=== PATIENT | female | born 1980 | race Two or more races ===

== ENCOUNTER 2019-04-08 16:59 | Inpatient (IN) | payer OTHER ==
[~2019-04-08] VITALS: Ht 149.9 cm; Wt 68.0 kg
[2019-04-17] MEDS ORDERED: PRENATE ELITE1 EAC2 PO (13:40)
== END 2019-05-02 16:51 | DRG 788 ==
LOC: OB/GYN 04-28 15:30 → LDR 04-28 15:30 → O/R 04-30 08:57 → OB/GYN 04-30 08:57
PROVIDERS: ADMIT Obstetrics & Gynecology Maternal & Fetal Medicine
PROC: 4A0HXFZ Measurement of Products of Conception, Cardiac Rhythm, External Approach (ICD-10-PCS; 2019-04-30)
PROC: 10D00Z1 Extraction of Products of Conception, Low, Open Approach (ICD-10-PCS; principal; 2019-04-30 10:15)
DX: O82 Encounter for cesarean delivery without indication (principal); Z3A.39 39 weeks gestation of pregnancy; Z37.0 Single live birth

== ENCOUNTER 2020-11-30 10:00 | Day surgery (SDC) | payer OTHER ==
[~2020-11-30 10:00] MED LIST: PRENATE ELITE1 EAC2 PO
== END 2020-11-30 17:30 | disposition home or self-care (01) ==
LOC: CIR.AMB 10:00 → ADM 11:15 → CIR.AMB 17:30
PROVIDERS: ATTEND Obstetrics & Gynecology
DX: O02.1 Missed abortion (principal); Z20.828 Contact with and (suspected) exposure to other viral communicable diseases